=== PATIENT | female | born 1995 | race Caucasian/White ===

== ENCOUNTER 2016-06-13 15:15 | Observation (INO) | payer SELFPAY ==
[~2016-06-13] VITALS: Ht 165.1 cm; Wt 72.1 kg
[~2016-06-13 15:15] MED LIST: LACTATED RINGER'S 1000 ML INJ 2,000 ML IV ONE; NEOSTIGMINE 3 MG/3 ML SYR IV ONE; PHENYLEPH/NS 1000 MCG/10 ML SYR IV ONE; PROPOFOL 200 MG/20 ML AMP IV ONE
[2016-06-13 15:17] VITALS: BP 129/79; PULSE 110; RESP 20; TEMP 99; O2SAT 97
--- NOTE | 2016-06-13 15:24 | PD ---
Physical Exam Date Seen by Provider: June 13, 2016 Time Seen by Provider: 15:23 Narrative 20 year old female presents to the emergency department for evaluation of RLQ pain since last night. She is also 19 weeks . She denies any abnormal vaginal discharge, bleeding, leakage of fluid. She can feel fetus move normally. Vital signs reviewed. Patient waiting bed placement. Data Data Last Documented VS Vital Signs Date Time Temp Pulse Resp B/P Pulse Ox O2 Delivery O2 Flow Rate FiO2 06/13/16 15:17 99.0 110 20 129/[address] [facility] Supervised Visit with JANICE: Jacquie Baires June 13, 2016 15:24
[2016-06-13 15:30] VITALS: RESP 16; O2SAT 99
[2016-06-13] MEDS ORDERED: SODIUM CHLOR 0.9% 1000 ML INJ 1,000 ML IV SCH (15:48)
[2016-06-13] MEDS ORDERED: SODIUM CHLORIDE 0.9% FLUSH 10 ML FLUSH IV FLUSH PRN ×2 (16:00→22:45)
[2016-06-13] MEDS ORDERED: diphenhydrAMINE HCL 50 MG/ML VIAL IV PUSH ONE (16:00)
[2016-06-13] MEDS ORDERED: SODIUM CHLOR 0.9% 1000 ML INJ 1,000 ML IV ONE (16:00)
--- NOTE | 2016-06-13 16:36 | PD ---
HPI Chief Complaint: Abdominal Pain Time Seen by Provider: 15:38 Travel History International Travel<30 days: No Contact w/Intl Traveler<30days: No Traveled to known affect area: No History of Present Illness HPI Patient is a 20-year-old female presents emergency department for evaluation of right lower quadrant abdominal pain. Patient states that initially the pain was in the right flank or the right upper quadrant and now has become fairly well localized to the right lower quadrant. States she's also endorses some mild nausea. She felt hot at home but did not take her temperature. She spoke with her uncle who is a physician in the area who recommended that she come up. To be excluded for appendicitis. She denies a history of abdominal surgery. She is at approximate 19 weeks gestational age. She is followed by nurse aging room hand at home and plans for a home delivery. Denies any chest pain short of breath vaginal bleeding vaginal discharge loss of fluid. PFSH Past Medical History Medical History: Denies Significant Hx ?: LMP: 01/30/17 Past Surgical History Surgical History: No Previous Surgery Family History Family History: Negative Social History Tobacco Use: No Allergies-Medications (Allergen,Severity, Reaction): Coded Allergies: No Known Allergies (Unverified , 06/13/16) Reported Meds & Prescriptions Reported Meds & Active Scripts Active Reported Multi Adult Gummies (Multiple Vitamins W/ Minerals) 1 Chw Chw 1 Chew PO DAILY Review of Systems Except as stated in HPI: all other systems reviewed are Neg Physical Exam Narrative GENERAL: [Well-developed well-nourished, appears uncomfortable but in no distress. SKIN: Focused skin assessment warm/dry. HEAD: Atraumatic. Normocephalic. EYES: Pupils equal and round. No scleral icterus. No injection or drainage. ENT: No nasal bleeding or discharge. Mucous membranes pink and moist. NECK: Trachea midline. No JVD. CARDIOVASCULAR: Regular rate and rhythm. No murmur appreciated. RESPIRATORY: No accessory muscle use. Clear to auscultation. Breath sounds equal bilaterally. GASTROINTESTINAL: Abdomen soft, moderately tender in the right lower quadrant, nondistended. Hepatic and splenic margins not palpable. Patient is referred pain from palpation of left lower quadrant. No true rebound. There is some mild percussive tenderness of the right lower quadrant. Abdomen is minimally distended appropriate for gestational age. GENITOURINARY: Deferred MUSCULOSKELETAL: No obvious deformities. No clubbing. No cyanosis. No edema. NEUROLOGICAL: Awake and alert. No obvious cranial nerve deficits. Motor grossly within normal limits. Normal speech. PSYCHIATRIC: Appropriate mood and affect; insight and judgment normal. Data Data Last Documented VS Vital Signs Date Time Temp Pulse Resp B/P Pulse Ox O2 Delivery O2 Flow Rate FiO2 06/13/16 15:45 16 06/13/16 15:30 99 Room Air 06/13/16 15:17 99.0 110 129/79 Orders Ed Poc Ultrasound (06/13/16 ) Complete Blood Count With Diff (06/13/16 15:48) Comprehensive Metabolic Panel (06/13/16 15:48) Prothrombin Time / Inr (Pt) (06/13/16 15:48) Act Partial Throm Time (Ptt) (06/13/16 15:48) Urinalysis - C+S If Indicated (06/13/16 15:48) Iv Access Insert/Monitor (06/13/16 15:48) Ecg Monitoring (06/13/16 15:48) Oximetry (06/13/16 15:48) Sodium Chlor 0.9% 1000 Ml Inj (Ns 1000 M (06/13/16 15:48) Sodium Chloride 0.9% Flush (Ns Flush) (06/13/16 16:00) Sodium Chlor 0.9% 1000 Ml Inj (Ns 1000 M (06/13/16 16:00) Diphenhydramine Inj (Benadryl Inj) (06/13/16 16:00) Mri Abdomen W/O Contrast (06/13/16 ) Ampicillin-Sulbactam Inj (Unasyn Inj) (06/13/16 17:45) Labs Laboratory Tests Test 06/13/16 16:00 White Blood Count 17.7 TH/MM3 Red Blood Count 3.84 MIL/MM3 Hemoglobin 12.0 GM/DL Hematocrit 34.3 % Mean Corpuscular Volume 89.4 FL Mean Corpuscular Hemoglobin 31.3 PG Mean Corpuscular Hemoglobin 35.0 % Concent Red Cell Distribution Width 13.5 % Platelet Count 215 TH/MM3 Mean Platelet Volume 9.8 FL Neutrophils (%) (Auto) 87.0 % Lymphocytes (%) (Auto) 4.5 % Monocytes (%) (Auto) 7.9 % Eosinophils (%) (Auto) 0.5 % Basophils (%) (Auto) 0.1 % Neutrophils # (Auto) 15.4 TH/MM3 Lymphocytes # (Auto) 0.8 TH/MM3 Monocytes # (Auto) 1.4 TH/MM3 Eosinophils # (Auto) 0.1 TH/MM3 Basophils # (Auto) 0.0 TH/MM3 CBC Comment DIFF FINAL Differential Comment Prothrombin Time 10.1 SEC Prothromb Time International 0.9 RATIO Ratio Activated Partial 27.7 SEC Thromboplast Time Urine Color LIGHT-YELLOW Urine Turbidity CLEAR Urine pH 6.5 Urine Specific [place] 1.008 Urine Protein NEG mg/dL Urine Glucose (UA) NEG mg/dL Urine Ketones NEG mg/dL Urine Occult Blood NEG Urine Nitrite NEG Urine Bilirubin NEG Urine Urobilinogen LESS THAN 2.0 MG/DL Urine Leukocyte Esterase NEG Urine WBC LESS THAN 1 /hpf Urine Squamous Epithelial 1 /hpf Cells Urine Mucus FEW /lpf Microscopic Urinalysis Comment CULT NOT INDICATED Sodium Level 138 MEQ/L Potassium Level 3.7 MEQ/L Chloride Level 106 MEQ/L Carbon Dioxide Level 22.8 MEQ/L Anion Gap 9 MEQ/L Blood Urea Nitrogen 5 MG/DL Creatinine 0.50 MG/DL Estimat Glomerular Filtration 154 ML/MIN Rate Random Glucose 92 MG/DL Calcium Level 9.0 MG/DL Total Bilirubin 0.3 MG/DL Aspartate Amino Transf 15 U/L (AST/SGOT) Alanine Aminotransferase 18 U/L (ALT/SGPT) Alkaline Phosphatase 55 U/L Total Protein 6.8 GM/DL Albumin 3.3 GM/DL MDM Medical Decision Making Medical Screen Exam Complete: Yes Emergency Medical Condition: Yes Differential Diagnosis Appendicitis, gastritis, gastric enteritis, cholecystitis Narrative Course Patient 20-year-old female presents for leg lower quadrant abdominal pain. She is fairly tender on exam and I agree with her uncles assessment that this could represent an acute appendicitis. MRIs pursued which confirms a diagnosis: Last 24 hours Impressions Abdomen MRI 06/13/16 0000 Signed Impressions: Service Date/Time: Monday, June 13, 2016 17:11 - CONCLUSION: 1. Appendix distended to 17 mm with mild periappendiceal fluid characteristic of an acute appendicitis with trace free fluid in the pelvis. No discrete abscess. No bowel dilatation. Khari Dennis MD Patient does have a white blood cell count elevated. She was discussed with Dr. Rui of the general surgery service who is going to come and evaluate the patient for surgical options. The patient has been given Unasyn. She was offered pain medicine multiple times in the emergency department and declined. She had taken Tylenol prior to arrival and did not want this. Discussed happy to administer morphine in the risk is fairly low given her gestational age and she declines. Diagnosis Primary Impression: Acute appendicitis Qualified Code: K35.80 - Acute appendicitis, unspecified acute appendicitis type Admitting Information Admitting Physician Requests: Admit Condition: Stable Rik Morales MD June 13, 2016 16:36
[2016-06-13 16:46] LABS: AUTOMATED NEUTROPHIL # 15.4 TH/MM3 (1.8-7.7); BASOPHIL % 0.1 % (0.0-2.0); EOSINOPHIL # 0.1 TH/MM3 (0-0.4); EOSINOPHIL % 0.5 % (0.0-4.0); HEMATOCRIT 34.3 % (35.0-46.0); HEMO FLAGS DIFF FINAL; LYMPH % 4.5 % (9.0-44.0); LYMPHOCYTE # 0.8 TH/MM3 (1.0-4.8); MEAN CELL VOLUME 89.4 FL (80.0-100.0); MEAN CORPUSCULAR HEMOGLOBIN 31.3 PG (27.0-34.0); MONO % 7.9 % (0.0-8.0); PLATELET COUNT 215 TH/MM3 (150-450); RED BLOOD COUNT 3.84 MIL/MM3 (4.00-5.30); RED CELL DISTRIBUTION WIDTH 13.5 % (11.6-17.2); WHITE BLOOD COUNT 17.7 TH/MM3 (4.0-11.0)
[2016-06-13 16:56] LABS: APTT (PATIENT) 27.7 SEC (24.3-30.1); INTERNATIONAL NORMALIZED RATIO 0.9 RATIO; PROTHROMBIN TIME - PATIENT 10.1 SEC (9.8-11.6)
[2016-06-13 16:58] LABS: BLOOD, URINE NEG (NEG); GLUCOSE,URINE NEG (NEG); KETONE, URINE NEG (NEG); MUCUS URINE FEW /lpf (OCC); NITRITE,URINE NEG (NEG); PH, URINE 6.5 (5.0-8.5); SQUAMOUS EPITHELIAL CELL URINE 1 /hpf (0-5); URINE COLOR LIGHT-YELLOW (YELLW/STRAW)
[2016-06-13 16:59] LABS: COMMENT (UR) CULT NOT INDICATED; CULTURE IF INDICATED CULT NOT INDICATED
[2016-06-13 17:09] LABS: ANION GAP 9 MEQ/L (5-15); AST (GOT) 15 U/L (15-37); BICARBONATE 22.8 MEQ/L (21.0-32.0); BLOOD UREA NITROGEN 5 MG/DL (7-18); CHLORIDE 106 MEQ/L (98-107); GLOMERULAR FILTRATION RATE 154 ML/MIN (>89); POTASSIUM 3.7 MEQ/L (3.5-5.1); SODIUM (NA) 138 MEQ/L (136-145)
[2016-06-13 17:12] LABS: ALKALINE PHOSPHATASE 55 U/L (45-117); ALT (GPT) 18 U/L (10-53); TOTAL BILIRUBIN ADULT 0.3 MG/DL (0.2-1.0)
[2016-06-13] MEDS ORDERED: AMPICILLIN-SULBACTAM INJ 3 GM in SODIUM CHLORIDE 0.9% INJ 100 ML IV ONE (17:45)
--- NOTE | 2016-06-13 17:53 | RADRPT ---
EXAM DATE/TIME: 06/13/2016 17:11 [place] COMPARISON: No previous studies available for comparison. INDICATIONS : Appendicitis. MEDICAL HISTORY : None. SURGICAL HISTORY : None. ENCOUNTER: Initial ACUITY: 1 day PAIN SCORE: 5/10 LOCATION: Right lower quadrant TECHNIQUE: Multiplanar, multisequence magnetic resonance imaging of the abdomen was performed without contrast. FINDINGS: The appendix measures up to 17 mm in diameter and there is a small amount axial fluid most characteri stic of an acute appendicitis. Intrauterine is noted incidentally. No definite abscess form ation. No bowel dilatation identified. Small free fluid in the pelvis. CONCLUSION: 1. Appendix distended to 17 mm with mild periappendiceal fluid characteristic of an acute appendiciti s with trace free fluid in the pelvis. No discrete abscess. No bowel dilatation. Khari Dennis MD on June 13, 2016 at 17:49 Board Certified Radiologist. This report was verified electronically.
[2016-06-13 18:00] VITALS: BP 112/58; PULSE 54; RESP 16; O2SAT 98
[2016-06-13] MEDS ORDERED: MULT1CHW33 PO (18:22)
--- NOTE | 2016-06-13 18:41 | HHI.HP ---
[facility] Service General surgery Primary Care Physician No Primary Care Physician Admission Diagnosis Appendicitis during Chief Complaint: Abdominal pain History of Present Illness This is a 20-year-old female 19 weeks who developed upper abdominal pain all day yesterday was last night and localized to the right lower quadrant. She's had some nausea but no vomiting. No fever or chills. No previous surgical history. No vaginal discharge or bleeding. Evaluation in the emergency department revealed severe tenderness in the right lower quadrant with leukocytosis and an MRI of the abdomen consistent with acute appendicitis. Per Dr. Morales heart tones were present. Review of Systems Constitutional: DENIES: Fever, Chills Eyes: DENIES: Eye inflammation, Eye pain Cardiovascular: DENIES: Chest pain, Palpitations Gastrointestinal: COMPLAINS OF: Abdominal pain, Nausea Genitourinary: DENIES: Abnormal vaginal bleeding Integumentary: DENIES: Pruritus, Rash Neurologic: DENIES: Localized weakness, Paresthesias Past Family Social History Past Medical History None Past Surgical History None Reported Medications None Allergies: Coded Allergies: No Known Allergies (Unverified , 06/13/16) Active Ordered Medications Current Medications Medications (Trade) Dose Ordered Sig/Mattie Route Start Time Stop Time Status Last Admin (NS Flush) 2 ml UNSCH PRN IV FLUSH 06/13/16 16:00 06/13/16 16:05 Family History Noncontributory Social History No ETOH or tobacco use Physical Exam Vital Signs Vital Signs Date Time Temp Pulse Resp B/P Pulse Ox O2 Delivery O2 Flow Rate FiO2 06/13/16 15:45 16 06/13/16 15:30 16 99 Room Air 06/13/16 15:17 99.0 110 20 129/79 97 Room Air Physical Exam GENERAL: Awake and alert. No acute distress. Cooperative. HEAD: Normocephalic. Atraumatic. NECK: Trachea midline. CHEST: Lungs clear to auscultation bilaterally with no wheezing or rhonchi. No respiratory distress. CARDIOVASCULAR: Regular rate and rhythm. ABDOMEN: MIld distention. Mild pain LLQ, severe ttp with rebound in RLQ. Difficult to assess size of uterus due to her tenderness EXTREMITIES: No cyanosis or edema. SKIN: Warm, dry, nonjaundiced. Laboratory Laboratory Tests Test 06/13/16 16:00 White Blood Count 17.7 Red Blood Count 3.84 Hemoglobin 12.0 Hematocrit 34.3 Mean Corpuscular Volume 89.4 Mean Corpuscular Hemoglobin 31.3 Mean Corpuscular Hemoglobin 35.0 Concent Red Cell Distribution Width 13.5 Platelet Count 215 Mean Platelet Volume 9.8 Neutrophils (%) (Auto) 87.0 Lymphocytes (%) (Auto) 4.5 Monocytes (%) (Auto) 7.9 Eosinophils (%) (Auto) 0.5 Basophils (%) (Auto) 0.1 Neutrophils # (Auto) 15.4 Lymphocytes # (Auto) 0.8 Monocytes # (Auto) 1.4 Eosinophils # (Auto) 0.1 Basophils # (Auto) 0.0 CBC Comment DIFF FINAL Differential Comment Prothrombin Time 10.1 Prothromb Time International 0.9 Ratio Activated Partial 27.7 Thromboplast Time Urine Color LIGHT-YELLOW Urine Turbidity CLEAR Urine pH 6.5 Urine Specific [place] 1.008 Urine Protein NEG Urine Glucose (UA) NEG Urine Ketones NEG Urine Occult Blood NEG Urine Nitrite NEG Urine Bilirubin NEG Urine Urobilinogen LESS THAN 2.0 Urine Leukocyte Esterase NEG Urine WBC LESS THAN 1 Urine Squamous Epithelial 1 Cells Urine Mucus FEW Microscopic Urinalysis Comment CULT NOT INDICATED Sodium Level 138 Potassium Level 3.7 Chloride Level 106 Carbon Dioxide Level 22.8 Anion Gap 9 Blood Urea Nitrogen 5 Creatinine 0.50 Estimat Glomerular Filtration 154 Rate Random Glucose 92 Calcium Level 9.0 Total Bilirubin 0.3 Aspartate Amino Transf 15 (AST/SGOT) Alanine Aminotransferase 18 (ALT/SGPT) Alkaline Phosphatase 55 Total Protein 6.8 Albumin 3.3 Result Diagram: 06/13/16 1600 06/13/16 1600 Imaging Last Impressions Abdomen MRI 06/13/16 0000 Signed Impressions: Service Date/Time: Monday, June 13, 2016 17:11 - CONCLUSION: 1. Appendix distended to 17 mm with mild periappendiceal fluid characteristic of an acute appendicitis with trace free fluid in the pelvis. No discrete abscess. No bowel dilatation. Khari Dennis MD Assessment and Plan Assessment and Plan 20 yo female 19 weeks gestation with evaluation consistent with acute appendicitis. I recommend to proceed to the operating room for laparoscopic possible open appendectomy. I discussed details risks and benefits with the patient, her , and her mother. She does know that there is a small risk of spontaneous . She has received Unasyn. Dr. Mcgovern of TECHNICAL OPERATIONS MANAGER will also evaluate the patient. Wilman Fabian MD June 13, 2016 18:41
[2016-06-13] MEDS ORDERED: MORPHINE SULFATE 4 MG/ML INJ IV PUSH ONE ×2 (19:15)
--- NOTE | 2016-06-13 19:22 | PD.CONS ---
HPI Chief Complaint Right-sided abdominal pain Date Seen: June 13, 2016 Travel History International Travel<30 Days: No Contact w/Intl Traveler<30Days: No Known Affected Area: No History of Present Illness HPI This patient is 20-year-old white female at 19 weeks gestation presents with right-sided abdominal pain began and the night. Pain progressively worsening the point she's come to the emergency room. She denies vaginal bleeding leakage of fluid or discharge. She is 19 weeks and sees a research and development manager for care and plans a home delivery. She has no other major medical problems. Para: 0 : 1 History Social History Alcohol Use: No Tobacco Use: No Substance Abuse: No Allergies-Medications (Allergen,Severity, Reaction): Coded Allergies: No Known Allergies (Unverified , 06/13/16) Home Meds Reported Medications Multiple Vitamins W/ Minerals (Multi Adult Gummies)1 Chw Chw1 Chew PO DAILY 06/13/16 Review of Systems General / Constitutional: No: Fever, Weight Gain, Chills, Other Eyes: No: Diploplia, Blurred Vision, Visual changes, Pain, Photophobia HENT: No: Headaches, Vertigo, Lightheadedness Cardiovascular: No: Irregular Rhythm, Chest Pain or Discomfort, Palpitations, Tachycardia, Syncope, Varicosities, Edema, Cyanosis Respiratory: No: Cough, Short of Breath, Other Gastrointestinal: Abdominal Pain, No: Nausea, Vomiting, Diarrhea Genitourinary: No: Decreased Urinary Output, Oliguria Musculoskeletal: No: Limited ROM, Weakness, Cramping, Edema, Pain Skin: No Rash, No Itching, No Dryness, No Lumps, No Change in Pigmentation, No Change in Nails, No Alopecia, No Lesions Neurologic: No: Weakness, Dizziness, Syncope, Focal Abnormalities, Coordination Problem, Headache, Slurred Speech, Seizures Psychiatric: No: Depression, Suicidal Ideations, Homicidal Ideation Endocrine: No: Heat Intolerance, Cold Intolerance, Polydipsia, Polyuria, Other Physical Exam Vital Signs Date Time Temp Pulse Resp B/P Pulse Ox O2 Delivery O2 Flow Rate FiO2 06/13/16 18:00 54 16 112/58 98 Room Air 06/13/16 15:45 16 06/13/16 15:30 16 99 Room Air 06/13/16 15:17 99.0 110 20 129/79 97 Room Air Narrative GENERAL: Well-nourished, well-developed patient. In moderate pain SKIN: Warm and dry. HEAD: Normocephalic and atraumatic. EYES: No scleral icterus. No injection or drainage. ENT: No nasal drainage noted. Mucous membranes pink. Airway patent. NECK: Supple, trachea midline. No JVD. CARDIOVASCULAR: Regular rate and rhythm without murmurs, gallops, or rubs. RESPIRATORY: Breath sounds equal bilaterally. No accessory muscle use. BREASTS: Bilateral exam showed no masses , no retractions, no nipple discharge. ABDOMEN/GI: Abdomen tender, bowel sounds present, no guarding Gravid to [-19] weeks size Fundal Height: [-At umbilicus] GENITOURINARY: FHT's: 140s EXTREMITIES: No cyanosis or edema. BACK: Nontender without obvious deformity. No CVA tenderness. NEUROLOGICAL: Awake and alert. Motor and sensory grossly within normal limits. Five out of 5 muscle strength in all muscle groups. Normal speech. Data Data Orders Ed Poc Ultrasound (06/13/16 ) Complete Blood Count With Diff (06/13/16 15:48) Comprehensive Metabolic Panel (06/13/16 15:48) Prothrombin Time / Inr (Pt) (06/13/16 15:48) Act Partial Throm Time (Ptt) (06/13/16 15:48) Urinalysis - C+S If Indicated (06/13/16 15:48) Iv Access Insert/Monitor (06/13/16 15:48) Ecg Monitoring (06/13/16 15:48) Oximetry (06/13/16 15:48) Sodium Chlor 0.9% 1000 Ml Inj (Ns 1000 M (06/13/16 15:48) Sodium Chloride 0.9% Flush (Ns Flush) (06/13/16 16:00) Sodium Chlor 0.9% 1000 Ml Inj (Ns 1000 M (06/13/16 16:00) Diphenhydramine Inj (Benadryl Inj) (06/13/16 16:00) Mri Abdomen W/O Contrast (06/13/16 ) Ampicillin-Sulbactam Inj (Unasyn Inj) (06/13/16 17:45) Admit Order (Ed Use Only) (06/13/16 ) Consult Obstetrics (06/13/16 ) (Hub Use Only)Inp Phy Cons/Ref (06/13/16 ) Morphine Inj (Morphine Inj) (06/13/16 19:15) Morphine Inj (Morphine Inj) (06/13/16 19:15) Labs Ultrasound done at bedside in the emergency room shows a viable fetus of size equal dates activity and cardiac motion noted, this was ultrasound was done by the ER staff, the patient also had an MRI done which shows signs consistent with appendicitis acute Laboratory Tests Test 06/13/16 16:00 White Blood Count 17.7 Red Blood Count 3.84 Hemoglobin 12.0 Hematocrit 34.3 Mean Corpuscular Volume 89.4 Mean Corpuscular Hemoglobin 31.3 Mean Corpuscular Hemoglobin 35.0 Concent Red Cell Distribution Width 13.5 Platelet Count 215 Mean Platelet Volume 9.8 Neutrophils (%) (Auto) 87.0 Lymphocytes (%) (Auto) 4.5 Monocytes (%) (Auto) 7.9 Eosinophils (%) (Auto) 0.5 Basophils (%) (Auto) 0.1 Neutrophils # (Auto) 15.4 Lymphocytes # (Auto) 0.8 Monocytes # (Auto) 1.4 Eosinophils # (Auto) 0.1 Basophils # (Auto) 0.0 CBC Comment DIFF FINAL Differential Comment Prothrombin Time 10.1 Prothromb Time International 0.9 Ratio Activated Partial 27.7 Thromboplast Time Urine Color LIGHT-YELLOW Urine Turbidity CLEAR Urine pH 6.5 Urine Specific [place] 1.008 Urine Protein NEG Urine Glucose (UA) NEG Urine Ketones NEG Urine Occult Blood NEG Urine Nitrite NEG Urine Bilirubin NEG Urine Urobilinogen LESS THAN 2.0 Urine Leukocyte Esterase NEG Urine WBC LESS THAN 1 Urine Squamous Epithelial 1 Cells Urine Mucus FEW Microscopic Urinalysis Comment CULT NOT INDICATED Sodium Level 138 Potassium Level 3.7 Chloride Level 106 Carbon Dioxide Level 22.8 Anion Gap 9 Blood Urea Nitrogen 5 Creatinine 0.50 Estimat Glomerular Filtration 154 Rate Random Glucose 92 Calcium Level 9.0 Total Bilirubin 0.3 Aspartate Amino Transf 15 (AST/SGOT) Alanine Aminotransferase 18 (ALT/SGPT) Alkaline Phosphatase 55 Total Protein 6.8 Albumin 3.3 MDM Interpretation(s) This patient is a 20-year-old white female at 19 weeks gestation presents with abdominal pain and radiographic and clinical workup consistent with appendicitis in Plan Ultrasound is been done which documented a viable fetus with positive cardiac motion. This Gen. surgery is involved in the planning take the patient to surgery tonight. I discussed the case with a general surgeon and we agreed that she is getting appropriate therapy, she certainly may receive IV antibiotics Unasyn , she may also receive IV pain medication in the form of fentanyl or Demerol or morphine and would recommend a repeat ultrasound of on the day of her discharge from the hospital to confirm that there was a normal fetus on admission and normal fetus on discharge. I explained to the patient that no one wants to have surgery however she is going to have it, this is the time to do it when you're because she is far enough along she should not miscarry and she's not far enough along that we have to worry about labor issues Admitting diagnosis: Appendicitis during Diagnosis: appendicitis in Condition: Stable Enrike Mcgovern II, MD June 13, 2016 19:22
[2016-06-13 19:24] VITALS: BP 108/59; PULSE 92; RESP 16; O2SAT 99
[2016-06-13 21:40] VITALS: BP 101/54; PULSE 92; RESP 17; TEMP 99.8; O2SAT 97
[2016-06-13] MEDS ORDERED: fentaNYL CITRATE 250 MCG/5 ML AMP ONE (21:40)
[2016-06-13] MEDS ORDERED: BUPIVACAINE/EPINEPHRINE 0.5% PF 30 ML VIAL ONE (22:05)
[2016-06-13] MEDS ORDERED: BUPIVACAINE/EPINEPHRINE 0.25% 50 ML VIAL ONE (22:06)
[2016-06-13] MEDS ORDERED: LACTATED RINGER'S 1000 ML INJ 1,000 ML IV SCH (22:38)
[2016-06-13] MEDS ORDERED: ONDANSETRON HCL 4 MG/2 ML VIAL IV PRN (22:45)
[2016-06-13] MEDS ORDERED: NALOXONE HCL 0.4 MG/ML AMP IV PRN (22:45)
[2016-06-13] MEDS ORDERED: Post-op Orders (for Pharmacy) MISC XX ONE (22:45)
[2016-06-13] MEDS ORDERED: oxyCODONE/ACETAMINOPHEN 5 MG/325 MG TAB PO PRN (22:45)
[2016-06-13] MEDS ORDERED: ONDANSETRON HCL 4 MG/2 ML VIAL IV PUSH PRN (22:45)
[2016-06-13] MEDS ORDERED: MORPHINE SULFATE 4 MG/ML INJ IV PUSH PRN ×2 (22:45)
--- NOTE | 2016-06-13 22:51 | PD.OP ---
cc: Wilman Fabian MD Operative Report Date of Surgery: June 13, 2016 Preoperative Diagnosis: (1) Acute appendicitis (2) with 19 completed weeks gestation Postoperative Diagnosis: (1) with 19 completed weeks gestation (2) Acute appendicitis Procedure: Laparoscopic Appendectomy Anesthesia: GETA Surgeon: Wilman Fabian Delinquency Prevention Social Worker(s): Juan Manuel GUERRERO Operation and Findings: EBL: 5 cc Complications: None apparent Operative findings: Enlarged uterus consistent with a 19 week gestational . The appendix was dilated and inflamed with exudative material. Procedure in detail: The patient was taken to the operating room placed in the supine position with left arm tucked. General endotracheal anesthesia was induced and the abdomen was prepped and draped in usual sterile fashion. Surgical timeout was performed to verify correct patient procedure and site. Perioperative antibiotics were administered as necessary. Local anesthetic was injected in the skin and subcutaneous tissue at left upper abdomen and a 5 mm incision made. Using the 5 mm Optiview trocar with laparoscope the abdomen was directly entered. Was then insufflated to 15 mmHg with CO2 gas which the patient tolerated well. The patient was then placed in Trendelenburg position and turned slightly to the left. A 12 mm port was placed under laparoscopic visualization of the left mid abdomen and a 5 mm port in the right upper quadrant. The uterus was noted to be enlarged and appeared consistent with an 18 week gestational . Attention was turned to the right lower quadrant and the cecum and appendix were more in the right midabdomen. The appendix was curled around on itself and inflamed with exudate externally. There was no purulent fluid. Adhesions from the cecum to the appendix were taken down in order to free the appendix. The mesoappendix was taken down with the Harmonic scalpel. Two #1 PDS Endoloops were placed at the base the appendix and the appendix transected with Harmonic scalpel. It was then removed using an Endo Catch bag. The appendiceal stump was intact with no leakage. There was no purulent fluid identified in the abdomen was allowed to desufflate. The fascia at the 12 mm port site was closed with a single 0 Vicryl suture. Skin closed with subcuticular Monocryl as well as Dermabond. The patient tolerated the procedure well was extubated and taken to PACU in stable condition. Wilman Fabian MD June 13, 2016 22:51
[2016-06-14] VITALS: BP 106/58; PULSE 74; RESP 16; TEMP 98.8; O2SAT 97
[2016-06-14] MEDS: oxyCODONE/ACETAMINOPHEN 5 MG/325 MG TAB PO PRN ×2 (03:44→11:03)
[2016-06-14 04:00] VITALS: BP 113/59; PULSE 81; RESP 16; TEMP 98.3; O2SAT 96
[2016-06-14 08:00] VITALS: BP 108/58; PULSE 73; TEMP 97.5; O2SAT 97
[2016-06-14] MEDS ORDERED: SODIUM CHLORIDE 0.9% FLUSH 10 ML FLUSH IV FLUSH SCH (09:00)
[2016-06-14 12:00] VITALS: BP 115/58; PULSE 78; TEMP 97.2; O2SAT 97
[2016-06-14] MEDS ORDERED: OXYC1TAB63 PO (13:39)
--- NOTE | 2016-06-14 13:42 | HHI.PR ---
Subjective Subjective Notes She is doing well post op. Pain controlled with medications. She is tolerating diet. She reports heart tones were checked and were fine. Objective Vitals/I&O Vital Signs Date Time Temp Pulse Resp B/P Pulse Ox O2 Delivery O2 Flow Rate FiO2 06/14/16 12:00 97.2 78 115/58 97 06/14/16 04:00 16 06/13/16 23:15 Nasal Cannula 3 Labs Laboratory Tests Test 06/13/16 16:00 White Blood Count 17.7 Red Blood Count 3.84 Hemoglobin 12.0 Hematocrit 34.3 Mean Corpuscular Volume 89.4 Mean Corpuscular Hemoglobin 31.3 Mean Corpuscular Hemoglobin 35.0 Concent Red Cell Distribution Width 13.5 Platelet Count 215 Mean Platelet Volume 9.8 Neutrophils (%) (Auto) 87.0 Lymphocytes (%) (Auto) 4.5 Monocytes (%) (Auto) 7.9 Eosinophils (%) (Auto) 0.5 Basophils (%) (Auto) 0.1 Neutrophils # (Auto) 15.4 Lymphocytes # (Auto) 0.8 Monocytes # (Auto) 1.4 Eosinophils # (Auto) 0.1 Basophils # (Auto) 0.0 CBC Comment DIFF FINAL Differential Comment Prothrombin Time 10.1 Prothromb Time International 0.9 Ratio Activated Partial 27.7 Thromboplast Time Urine Color LIGHT-YELLOW Urine Turbidity CLEAR Urine pH 6.5 Urine Specific [place] 1.008 Urine Protein NEG Urine Glucose (UA) NEG Urine Ketones NEG Urine Occult Blood NEG Urine Nitrite NEG Urine Bilirubin NEG Urine Urobilinogen LESS THAN 2.0 Urine Leukocyte Esterase NEG Urine WBC LESS THAN 1 Urine Squamous Epithelial 1 Cells Urine Mucus FEW Microscopic Urinalysis Comment CULT NOT INDICATED Sodium Level 138 Potassium Level 3.7 Chloride Level 106 Carbon Dioxide Level 22.8 Anion Gap 9 Blood Urea Nitrogen 5 Creatinine 0.50 Estimat Glomerular Filtration 154 Rate Random Glucose 92 Calcium Level 9.0 Total Bilirubin 0.3 Aspartate Amino Transf 15 (AST/SGOT) Alanine Aminotransferase 18 (ALT/SGPT) Alkaline Phosphatase 55 Total Protein 6.8 Albumin 3.3 Radiology Last Impressions Abdomen MRI 06/13/16 0000 Signed Impressions: Service Date/Time: Monday, June 13, 2016 17:11 - CONCLUSION: 1. Appendix distended to 17 mm with mild periappendiceal fluid characteristic of an acute appendicitis with trace free fluid in the pelvis. No discrete abscess. No bowel dilatation. Khari Dennis MD Narrative Exam NAD Abd soft, post op ttp, inc c/d/i A/P Assessment and Plan 20 yo F 19 wks gestation POD 1 s/p lap appy. Stable post op. D/c home. Activity- no heavy lifting. Diet as elvin. Rx for percocet. F/u in two weeks. Will need u/s of fetus prior to dc per Dr. Mcgovern recommendations. D/w patient and nursing staff. Wilman Fabian MD June 14, 2016 13:42
[2016-06-14 16:00] VITALS: BP 108/58; PULSE 64; RESP 16; TEMP 96.6; O2SAT 97
== END 2016-06-14 16:41 | disposition home or self-care (01) ==
LOC: NEPC 15:15 → INTOOBSV 17:58 → NEDA 17:58 → HOCA 21:42
PROVIDERS: ADMIT Surgery; ATTEND Surgery
DX: K35.80 Unspecified acute appendicitis (principal); O99.612 Diseases of the digestive system complicating pregnancy, second trimester; R10.31 Right lower quadrant pain; R11.0 Nausea; Z3A.19 19 weeks gestation of pregnancy
CPT/HCPCS: 00840; 44970; 74181; 76805; 80053; 81001; 85025; 85610; 85730; 88304; 94150; 96361; 96374; 99285; G0378; J0295; J1200; J2270; J2370; J2710; J3010; J7030; J7120

== ENCOUNTER 2016-11-17 19:25 | Inpatient (IN) | payer SELFPAY ==
[~2016-11-17] VITALS: Ht 165.1 cm; Wt 86.0 kg
[~2016-11-17 19:25] MED LIST changes: -LACTATED RINGER'S 1000 ML INJ 2,000 ML IV ONE; +MULT1CHW33 PO; -NEOSTIGMINE 3 MG/3 ML SYR IV ONE; +OXYC1TAB63 PO; -PHENYLEPH/NS 1000 MCG/10 ML SYR IV ONE; -PROPOFOL 200 MG/20 ML AMP IV ONE
--- NOTE | 2016-11-17 20:20 | PD ---
HPI Chief Complaint Low amniotic fluid Date Seen: Nov 17, 2016 Time Seen: 20:17 Travel History International Travel<30 Days: No Contact w/Intl Traveler<30Days: No Known Affected Area: No History of Present Illness HPI 21-year-old female who is at 41 weeks gestation and sees Sylvia Arias for her care. Patient obtained a biophysical profile today which showed that she had an ELISHA of 2 and a heart rate of 110 on the ultrasound as well as and the records and information manager office. Patient is experiencing normal movement and denies any issues except for an appendectomy performed at 18 weeks. Weeks Gestation: 41 Para: 0 : 1 History Past Medical History Medical History: Denies Significant Hx Past Surgical History Narrative Surgical Appendectomy Family History Family History: Negative Social History Alcohol Use: No Tobacco Use: No Substance Abuse: No Allergies-Medications (Allergen,Severity, Reaction): Coded Allergies: No Known Allergies (Unverified , 06/13/16) Home Meds Active Scripts Oxycodone-Acetaminophen (Oxycodone-Acetaminophen) 5-325 mg Tab, 1-2 TAB PO Q4H Y for PAIN, #25 TAB Prov:Wilman Fabian MD 06/14/16 Reported Medications Multiple Vitamins W/ Minerals (Multi Adult Gummies) 1 Chw Chw, 1 CHEW PO DAILY 06/13/16 Review of Systems Except as stated in HPI: all other systems reviewed are Neg Physical Exam Narrative GENERAL: Well-nourished, well-developed patient. SKIN: Warm and dry. HEAD: Normocephalic and atraumatic. EYES: No scleral icterus. No injection or drainage. ENT: No nasal drainage noted. Mucous membranes pink. Airway patent. NECK: Supple, trachea midline. No JVD. CARDIOVASCULAR: Regular rate and rhythm without murmurs, gallops, or rubs. RESPIRATORY: Breath sounds equal bilaterally. No accessory muscle use. BREASTS: Bilateral exam showed no masses , no retractions, no nipple discharge. ABDOMEN/GI: Abdomen soft, non-tender, bowel sounds present, no rebound, no guarding Gravid to [-38] weeks size Fundal Height: [-] GENITOURINARY: External Genitalia: intact and normal in appearance BUS glands: [Normal-] Cervix: [-Posterior] Dilatation: [-1] Effacement: [-50] Station: [--2] Presentation: [-Vertex] Membranes: [intact ] Uterine Contractions: [Every 15-] FHT's: Category: [-1] Baseline: [140-] Reactive: [-Moderate] Variability: [Moderate-] Decels: [-Absent] EXTREMITIES: No cyanosis or edema. BACK: Nontender without obvious deformity. No CVA tenderness. NEUROLOGICAL: Awake and alert. Motor and sensory grossly within normal limits. Five out of 5 muscle strength in all muscle groups. Normal speech. Data Data Vital Signs Reviewed: Yes Group B Strep: Negative MDM Medical Record Reviewed: Yes Plan 21-year-old 41 weeks gestation with oligohydramnios Plan induction of labor initially with cervical ripening followed by Pitocin Diagnosis Diagnosis: Primary Impression: 41 weeks gestation of Additional Impression: Oligohydramnios in shahid in third trimester Jacqueline Hernandez MD Nov 17, 2016 20:20
[2016-11-17] MEDS ORDERED: LACTATED RINGER'S 1000 ML INJ 1,000 ML IV PRN (20:22)
[2016-11-17] MEDS ORDERED: SODIUM CHLORID 0.9% 500 ML INJ 500 ML IV PRN (20:30)
[2016-11-17] MEDS ORDERED: OXYTOCIN 30 UNITS-500ML PREMIX 500 ML IV ONE (20:30)
[2016-11-17] MEDS ORDERED: LIDOCAINE HCL 1% 50 ML VIAL INFIL PRN (20:30)
[2016-11-17] MEDS ORDERED: ZOLPIDEM TARTRATE 5 MG TAB PO PRN (20:30)
[2016-11-17] MEDS ORDERED: SODIUM CHLORIDE 0.9% FLUSH 10 ML FLUSH IV FLUSH PRN (20:30)
[2016-11-17] MEDS ORDERED: LIDOCAINE HCL 1% 50 ML VIAL I-DERMAL PRN (20:30)
[2016-11-17] MEDS ORDERED: CITRIC ACID-SODIUM CITRATE LIQ 30 ML UDC PO SCH (20:30)
[2016-11-17] MEDS ORDERED: MINERAL OIL 10 ML VIAL TOPICAL PRN (20:30)
[2016-11-17] MEDS ORDERED: ONDANSETRON HCL 4 MG/2 ML VIAL IV PUSH PRN (20:30)
[2016-11-17] MEDS ORDERED: SODIUM CHLOR 0.9% 1000 ML INJ 1,000 ML IV PRN (20:42)
[2016-11-17 21:39] LABS: BLOOD, URINE NEG (NEG); CALCIUM OXALATE CRYSTALS,URINE MANY /hpf; COMMENT (UR) CULT NOT INDICATED; CULTURE IF INDICATED CULT NOT INDICATED; GLUCOSE,URINE NEG (NEG); KETONE, URINE NEG (NEG); MUCUS URINE FEW /lpf (OCC); NITRITE,URINE NEG (NEG); PH, URINE 5.5 (5.0-8.5); SQUAMOUS EPITHELIAL CELL URINE 5 /hpf (0-5); URINE COLOR DARK-YELLOW (YELLW/STRAW)
[2016-11-17 21:46] LABS: AUTOMATED NEUTROPHIL # 6.5 TH/MM3 (1.8-7.7); BASOPHIL % 0.2 % (0.0-2.0); EOSINOPHIL # 0.1 TH/MM3 (0-0.4); EOSINOPHIL % 1.3 % (0.0-4.0); HEMATOCRIT 38.7 % (35.0-46.0); HEMO FLAGS DIFF FINAL; LYMPH % 14.2 % (9.0-44.0); LYMPHOCYTE # 1.3 TH/MM3 (1.0-4.8); MEAN CELL VOLUME 91.4 FL (80.0-100.0); MEAN CORPUSCULAR HEMOGLOBIN 31.3 PG (27.0-34.0); MEAN CORPUSCULAR HGB CONC 34.2 % (32.0-36.0); MONO % 10.9 % (0.0-8.0); NEUT % 73.4 % (16.0-70.0); PLATELET COUNT 163 TH/MM3 (150-450); RED BLOOD COUNT 4.24 MIL/MM3 (4.00-5.30); RED CELL DISTRIBUTION WIDTH 18.8 % (11.6-17.2); WHITE BLOOD COUNT 8.9 TH/MM3 (4.0-11.0)
[2016-11-17 22:47] VITALS: BP 127/64; PULSE 89
[2016-11-17] MEDS: LACTATED RINGER'S 1000 ML INJ 1,000 ML IV SCH (22:49)
[2016-11-17] MEDS: MISOPROSTOL 25 MCG SUPP VAGINAL PRN (22:49)
[2016-11-17 22:52] VITALS: RESP 18
[2016-11-18] VITALS (25 sets, daily range): BP systolic 107–120; BP diastolic 53–91; PULSE 57–91; RESP 16–18; TEMP 97.5–98.5
[2016-11-18] MEDS: MISOPROSTOL 25 MCG SUPP VAGINAL PRN (03:43)
[2016-11-18] MEDS: LACTATED RINGER'S 1000 ML INJ 1,000 ML IV SCH ×7 (04:20→20:22)
[2016-11-18] MEDS: SODIUM CHLORIDE 0.9% FLUSH 10 ML FLUSH IV FLUSH SCH ×2 (07:04→21:00)
[2016-11-18] MEDS ORDERED: MISOPROSTOL 25 MCG SUPP VAGINAL ONE (08:15)
--- NOTE | 2016-11-18 09:02 | PD.LABORPN ---
Subjective Subjective No complaints. Cytotec 50 mg given. Objective Vital Signs Vital Signs Date Time Temp Pulse Resp B/P (MAP) Pulse Ox O2 Delivery O2 Flow Rate FiO2 11/18/16 06:55 98.2 11/18/16 03:01 65 115/53 (73) Objective Pelvic Exam: Cervix: midline Dilatation: 1 cm Effacement: 50% Station: -1 Presentation: cephalic Membranes: intact Uterine Contractions: none FHT's: Category: 1 Baseline: 135 Reactive: yes Variability: moderate Decels: none Weeks Gestation: 41 Gest Age Assessed Date: Nov 18, 2016 Gest Age Assessed Time: 09:02 Pt started active labor?: No Medical induction of labor?: Yes Medical induction start date: Nov 17, 2016 Medical induction start time: 20:17 Artificial rupture of membrane: No Assessment/Plan Problem List: (1) 41 weeks gestation of ICD Codes: Z3A.41 - 41 weeks gestation of Status: Acute (2) Oligohydramnios in shahid in third trimester ICD Codes: O41.03X0 - Oligohydramnios, third trimester, not applicable or unspecified Status: Acute Assessment and Plan 21 y/o @41/1 weeks here for medical induction sec to oligohydramnios. S/p cytotec 25 mg x2. No progression in dilation in the last 12 hours, patient still 1cm and 50% effaced. - Gave 50 mg cytotec - If no change in 2-4 hours, plan to use cook catheter - con't to monitor vitals and FHT DW Codie Peng MD R1 Nov 18, 2016 09:02
--- NOTE | 2016-11-18 13:19 | PD.LABORPN ---
Subjective Subjective Pt was seen around 10:30am and was comfortable with minimal cramping, bouncing on a ball. She was seen again now and reported increased cramping. It has been 4.5hrs since last dose of cytotec. Objective Vital Signs Vital Signs Date Time Temp Pulse Resp B/P (MAP) Pulse Ox O2 Delivery O2 Flow Rate FiO2 11/18/16 11:59 97.9 11/18/16 08:59 57 113/78 (90) 11/18/16 06:55 98.2 Objective Pelvic Exam: Cervix: Dilatation: 1.5 Effacement: 60 Station:-3 Presentation: cephalic Membranes: intact Uterine Contractions: none FHT's: Category: 1 Baseline: 140 Reactive: yes Variability: moderate Decels: absent Weeks Gestation: 41 Gest Age Assessed Date: Nov 18, 2016 Gest Age Assessed Time: 09:02 Pt started active labor?: No Medical induction of labor?: Yes Medical induction start date: Nov 17, 2016 Medical induction start time: 20:17 Artificial rupture of membrane: No Assessment/Plan Problem List: (1) 41 weeks gestation of ICD Codes: Z3A.41 - 41 weeks gestation of Status: Acute (2) Oligohydramnios in shahid in third trimester ICD Codes: O41.03X0 - Oligohydramnios, third trimester, not applicable or unspecified Status: Acute Assessment and Plan Cat 1 tracing s/p 25/25/50 mcg of cytotec with appropriate ripening will place cook catheter now with 60/60cc reassess PRN or in 12 hours Juan Carlos Mehta MD Nov 18, 2016 13:19
--- NOTE | 2016-11-18 19:58 | HHI.PR ---
[facility] [employer] Note Note FHT reviewed as cat 1 Juan Carlos Mehta MD Nov 18, 2016 19:58
[2016-11-18] MEDS ORDERED: OXYTOCIN 30 UNITS-500ML PREMIX 500 ML IV SCH (23:00)
[2016-11-19] VITALS (53 sets, daily range): BP systolic 103–139; BP diastolic 57–90; PULSE 76–119; RESP 14–20; TEMP 97.9–102.2; O2SAT 98–99
[2016-11-19] MEDS ORDERED: fentaNYL 2MCG-BUPIV 0.125% INJ 100 ML ONE (01:54)
[2016-11-19] MEDS ORDERED: ePHEDrine/NS 25 MG/5 ML SYR ONE (01:54)
[2016-11-19] MEDS ORDERED: NO SYSTEM NARCOTICS PRN (02:30)
[2016-11-19] MEDS ORDERED: DO NOT ADMINISTER ANTICOAGULANTS PRN (02:30)
[2016-11-19] MEDS ORDERED: ePHEDrine/NS 25 MG/5 ML SYR IV PUSH PRN (02:30)
[2016-11-19] MEDS ORDERED: fentaNYL 2MCG-BUPIV 0.125% 100 ML EPIDURAL SCH (02:30)
[2016-11-19] MEDS: LACTATED RINGER'S 1000 ML INJ 1,000 ML IV SCH ×3 (02:32→10:46)
--- NOTE | 2016-11-19 08:29 | PD.LABORPN ---
Subjective Subjective Pt resting comfortably in bed. No concerns at this time. Trying to get some sleep. Objective Vital Signs Vital Signs Date Time Temp Pulse Resp B/P (MAP) Pulse Ox O2 Delivery O2 Flow Rate FiO2 11/19/16 08:15 89 123/62 (82) 11/19/16 08:11 20 11/19/16 08:09 87 123/63 (83) 11/19/16 08:00 103 132/90 (104) 11/19/16 07:45 96 136/85 (102) 11/19/16 07:31 99 120/84 (96) 11/19/16 07:15 85 131/87 (102) 11/19/16 07:15 20 11/19/16 07:00 83 133/81 (98) 11/19/16 06:30 79 128/85 (99) 11/19/16 06:00 81 115/72 (86) 11/19/16 05:42 98.5 14 11/19/16 05:30 92 117/73 (88) 11/19/16 05:00 78 103/57 (72) 11/19/16 04:15 77 118/73 (88) 11/19/16 04:00 95 127/77 (94) 11/19/16 04:00 97.9 14 11/19/16 03:45 85 133/74 (93) 11/19/16 03:30 80 133/80 (97) 11/19/16 03:15 130/77 (94) 11/19/16 03:15 83 11/19/16 03:10 81 11/19/16 03:05 79 11/19/16 03:00 79 11/19/16 02:45 76 122/80 (94) 11/19/16 02:45 76 11/19/16 02:40 80 11/19/16 02:35 83 11/19/16 02:30 84 11/19/16 02:26 84 119/81 (94) 11/19/16 02:25 84 99 11/19/16 02:20 99 11/19/16 02:20 88 121/77 (92) 11/19/16 02:15 96 118/76 (90) 11/19/16 02:15 99 11/19/16 02:10 98 10/12/17 02:10 95 11/19/16 02:10 131/78 (95) 11/19/16 02:08 90 118/74 (89) Objective Pelvic Exam: Dilatation: 7-8 Effacement: 80 Station: -1 Presentation: vertex Membranes: SROM at 0612 this morning Uterine Contractions: q2-3 minutes FHT's: Category: 1 Baseline: 150 Reactive: yes Variability: moderate Decels: none Weeks Gestation: 41 Gest Age Assessed Date: Nov 18, 2016 Gest Age Assessed Time: 09:02 Pt started active labor?: Yes Active labor start date: Nov 19, 2016 Active labor start time: 03:00 Medical induction of labor?: Yes Medical induction start date: Nov 17, 2016 Medical induction start time: 20:17 Artificial rupture of membrane: No Assessment/Plan Problem List: (1) 41 weeks gestation of ICD Codes: Z3A.41 - 41 weeks gestation of Status: Acute (2) Oligohydramnios in shahid in third trimester ICD Codes: O41.03X0 - Oligohydramnios, third trimester, not applicable or unspecified Status: Acute Assessment and Plan 21 y/o G1 at 41/2 weeks in active labor, induced due to low ELISHA Category 1 FHT GBS negative SROM this morning -Continue pitocin -Expectant management -Epidural in place -Plan for vaginal delivery Domingo Díaz MD, R2 Nov 19, 2016 08:29
[2016-11-19] MEDS: SODIUM CHLORIDE 0.9% FLUSH 10 ML FLUSH IV FLUSH SCH (09:00)
[2016-11-19] MEDS ORDERED: ACETAMINOPHEN 325 MG TAB PO PRN ×3 (09:30→11:30)
--- NOTE | 2016-11-19 09:50 | PD.LABORPN ---
Subjective Subjective Pt was seen this morning on rounds. She is s/p epidural at 2am but still feels tired. Objective Vital Signs Vital Signs Date Time Temp Pulse Resp B/P (MAP) Pulse Ox O2 Delivery O2 Flow Rate FiO2 11/19/16 09:30 87 133/69 (90) 11/19/16 09:19 88 133/77 (95) 11/19/16 09:16 102.2 11/19/16 09:00 93 138/84 (102) 11/19/16 08:45 97 131/80 (97) 11/19/16 08:36 100.6 11/19/16 08:15 89 123/62 (82) 11/19/16 08:11 20 11/19/16 08:09 87 123/63 (83) 11/19/16 08:00 103 132/90 (104) 11/19/16 07:45 96 136/85 (102) 11/19/16 07:31 99 120/84 (96) 11/19/16 07:15 85 131/87 (102) 11/19/16 07:15 20 11/19/16 07:00 83 133/81 (98) 11/19/16 06:30 79 128/85 (99) 11/19/16 06:00 81 115/72 (86) 11/19/16 05:42 98.5 14 11/19/16 05:30 92 117/73 (88) 11/19/16 05:00 78 103/57 (72) 11/19/16 04:15 77 118/73 (88) 11/19/16 04:00 95 127/77 (94) 11/19/16 04:00 97.9 14 11/19/16 03:45 85 133/74 (93) 11/19/16 03:30 80 133/80 (97) 11/19/16 03:15 130/77 (94) 11/19/16 03:15 83 11/19/16 03:10 81 11/19/16 03:05 79 11/19/16 03:00 79 11/19/16 02:45 76 122/80 (94) 11/19/16 02:45 76 11/19/16 02:40 80 11/19/16 02:35 83 11/19/16 02:30 84 11/19/16 02:26 84 119/81 (94) 11/19/16 02:25 84 99 11/19/16 02:20 99 11/19/16 02:20 88 121/77 (92) 11/19/16 02:15 96 118/76 (90) 11/19/16 02:15 99 11/19/16 02:10 98 11/19/16 02:10 95 11/19/16 02:10 131/78 (95) 11/19/16 02:08 90 118/74 (89) Objective Cat 1 tracing cvx 7-8/90/0 Weeks Gestation: 41 Gest Age Assessed Date: Nov 18, 2016 Gest Age Assessed Time: 09:02 Pt started active labor?: Yes Active labor start date: Nov 19, 2016 Active labor start time: 03:00 Medical induction of labor?: Yes Medical induction start date: Nov 17, 2016 Medical induction start time: 20:17 Artificial rupture of membrane: No Assessment/Plan Problem List: (1) 41 weeks gestation of ICD Codes: Z3A.41 - 41 weeks gestation of Status: Acute (2) Oligohydramnios in shahid in third trimester ICD Codes: O41.03X0 - Oligohydramnios, third trimester, not applicable or unspecified Status: Acute (3) Chorioamnionitis ICD Codes: O41.1290 - Chorioamnionitis, unspecified trimester, not applicable or unspecified Assessment and Plan 1. Postdates IOL -- pt s/p of cytotec -- cook cath 13:00 to 01:00am today -- cvx 5 --> 7 --> 7-8 -- SROM @ 06:15 -- continue pitocin (currently at 16) -- if unchanged at next check (10am), place IUPC 2. wellbeing -- cat 1 tracing 3. Chorioamnionitis -- 100.6 @ 8am --> 500cc IVF bolus given -- 102.2 @ 09:15 --> start amp/gent and tylenol -- monitor closely Juan Carlos Mehta MD Nov 19, 2016 09:50
[2016-11-19] MEDS: AMPICILLIN INJ 2,000 MG in SODIUM CHLORIDE 0.9% INJ 100 ML IV SCH ×3 (10:09→22:35)
[2016-11-19] MEDS ORDERED: LIDOCAINE 2%/EPINEPHrine PF 1:200,000 20ML SDV ONE (10:26)
[2016-11-19] MEDS ORDERED: BUPIVACAINE HCL PF 0.25% 10 ML VIAL ONE (10:26)
[2016-11-19] MEDS ORDERED: ACETAMINOPHEN 1000 MG/100 ML 100 ML IV ONE ×2 (10:26→10:30)
[2016-11-19] MEDS: GENTAMICIN INJ 130 MG in SODIUM CHLORIDE 0.9% INJ 100 ML IV SCH ×2 (10:46→17:46)
--- NOTE | 2016-11-19 11:22 | HHI.PR ---
Subjective Remarks [facility] [place] Attending Delivery Note. Assumed care for patient at sign out from previous attending. Patient was noted to have chorioamnionitis with a recent fever of 102.2. Upon my arrival to the room she had received 500 cc IV fluid and 2 g of Ancef. I ordered an additional 500 cc of IV fluid and 1000 mg of Tylenol IV and the gentamycin was hung after completion of ampicillin. heart tones were noted to be tachycardic however had moderate long-term variability and good accelerations without evidence of heart rate decelerations, a likely response to the maternal fever. The patient's vaginal exam was noted to be an anterior rim/ complete/0. Shortly thereafter the patient was reexamined with SVE complete/ complete/+2. The patient made excellent spontaneous maternal expulsive efforts with practice pushing attempts during one contraction. The delivery team was assembled and the patient proceeded to deliver the head spontaneously and atraumatically during maternal expulsive efforts with one contraction. A loose nuchal cord was reduced over the head and anterior shoulder and remainder of the delivered atraumatically. The was vigorously after stimulation on the maternal abdomen and the team allowed to stay on the maternal abdomen for several minutes but was eventually taken to the warmer due to tachypnea where the received some additional oxygen support due to the tachypnea. The placenta delivered spontaneously and was noted to be intact. Cultures of the placenta were obtained and the placenta was sent to pathology. Apgars 7/9. Objective Vital Signs Date Time Temp Pulse Resp B/P (MAP) Pulse Ox O2 Delivery O2 Flow Rate FiO2 11/19/16 10:00 100 132/86 (101) 11/19/16 09:45 99 139/85 (103) 11/19/16 09:30 20 11/19/16 09:30 87 133/69 (90) 11/19/16 09:19 88 133/77 (95) 11/19/16 09:16 102.2 11/19/16 09:00 93 138/84 (102) 11/19/16 08:45 97 131/80 (97) 11/19/16 08:36 100.6 11/19/16 08:15 89 123/62 (82) 11/19/16 08:11 20 11/19/16 08:09 87 123/63 (83) 11/19/16 08:00 103 132/90 (104) 11/19/16 07:45 96 136/85 (102) 11/19/16 07:31 99 120/84 (96) 11/19/16 07:15 85 131/87 (102) 11/19/16 07:15 20 11/19/16 07:00 83 133/81 (98) 11/19/16 06:30 79 128/85 (99) 11/19/16 06:00 81 115/72 (86) 11/19/16 05:42 98.5 14 11/19/16 05:30 92 117/73 (88) 11/19/16 05:00 78 103/57 (72) 11/19/16 04:15 77 118/73 (88) 11/19/16 04:00 95 127/77 (94) 11/19/16 04:00 97.9 14 11/19/16 03:45 85 133/74 (93) 11/19/16 03:30 80 133/80 (97) 11/19/16 03:15 130/77 (94) 11/19/16 03:15 83 11/19/16 03:10 81 11/19/16 03:05 79 11/19/16 03:00 79 11/19/16 02:45 76 122/80 (94) 11/19/16 02:45 76 11/19/16 02:40 80 11/19/16 02:35 83 11/19/16 02:30 84 11/19/16 02:26 84 119/81 (94) 11/19/16 02:25 84 99 11/19/16 02:20 99 11/19/16 02:20 88 121/77 (92) 11/19/16 02:15 96 118/76 (90) 11/19/16 02:15 99 11/19/16 02:10 98 11/19/16 02:10 95 11/19/16 02:10 131/78 (95) 11/19/16 02:08 90 118/74 (89) 11/19/16 00:00 15 11/19/16 00:00 98.0 11/18/16 22:00 75 16 107/65 (79) 11/18/16 20:00 97.5 11/18/16 20:00 84 112/62 (79) 11/18/16 20:00 16 11/18/16 18:18 98.0 91 120/67 (84) 11/18/16 18:18 16 11/18/16 16:35 79 120/72 (88) 11/18/16 16:35 87 11/18/16 16:30 79 11/18/16 16:20 78 11/18/16 16:15 71 11/18/16 16:05 63 11/18/16 16:00 64 11/18/16 15:25 63 11/18/16 15:20 86 11/18/16 15:15 67 11/18/16 15:10 86 11/18/16 15:05 78 11/18/16 15:00 69 11/18/16 14:55 74 11/18/16 14:50 66 11/18/16 14:45 75 11/18/16 14:40 65 11/18/16 14:36 98.5 18 11/18/16 14:35 68 111/91 (98) 11/18/16 11:59 97.9 Result Diagram: 11/17/162044 Ester Awan MD Nov 19, 2016 11:22
[2016-11-19] MEDS ORDERED: ALUMINUM/MAGNESIUM/SIMETH 30 ML CUP PO PRN (11:30)
[2016-11-19] MEDS ORDERED: SODIUM CHLORIDE 0.9% FLUSH 10 ML FLUSH IV FLUSH PRN (11:30)
[2016-11-19] MEDS ORDERED: DOCUSATE SODIUM 50 MG/SENNA 8.6 MG TAB PO PRN (11:30)
[2016-11-19] MEDS ORDERED: ONDANSETRON ODT 4 MG TAB PO PRN (11:30)
[2016-11-19] MEDS ORDERED: oxyCODONE/ACETAMINOPHEN 5 MG/325 MG TAB PO PRN ×2 (11:30)
[2016-11-19] MEDS ORDERED: WITCH HAZEL 50%/GLYCERIN 12.5% 40 PAD JAR TOPICAL PRN (11:30)
[2016-11-19] MEDS ORDERED: BENZOCAINE 20% TOPICAL SPRAY 60 ML CAN TOPICAL PRN (11:30)
--- NOTE | 2016-11-19 12:09 | PD.OB.DELI ---
Weeks gestation: 41 Gest age assessed date: Nov 18, 2016 Gest age assessed time: 09:02 Pt started active labor?: Yes Active labor start date: Nov 19, 2016 Active labor start time: 03:00 Medical induction of labor?: Yes Medical induction start date: Nov 17, 2016 Medical induction start time: 20:17 Artificial rupture of membrane: No Anesthesia: Epidural Episiotomy: None Vaginal Delivery: Normal, Spontaneous Presentation: Occiput anterior, Vertex Nuchal Cord: x1 Delayed cord clamping (45 sec): Yes Infant: Female Delivery date: Nov 19, 2016 Delivery time: 11:01 One Minute : 7 Five Minute : 9 Weight: 3535 Placenta: Spontaneous delivery, Intact Laceration: Perineal laceration, 1 deg Repair: Chromic running Estimated blood loss: 250 cc Codie Millan MD R1 Nov 19, 2016 12:09
[2016-11-19] MEDS ORDERED: OXYTOCIN 30 UNITS-500ML PREMIX 500 ML IV SCH (12:30)
--- NOTE | 2016-11-19 14:11 | HHI.PR ---
Subjective Remarks [facility] Attending Of note the was transferred to the NICU after approximately 30 minutes of life for further evaluation and management. Upon discussion with the , it appears the is doing well but is receiving antibiotics for maternal chorioamnionitis although the parents apparently had initially refused this treatment. They subsequently changed her mind and the is receiving antibiotics. The parents of refused vitamin K injection. The mother is doing well with minimal bleeding and we will continue her antibiotics. Objective - Vital Signs Date Time Temp Pulse Resp B/P (MAP) Pulse Ox O2 Delivery O2 Flow Rate FiO2 11/19/16 13:00 77 128/79 (95) 11/19/16 12:35 20 11/19/16 11:59 98.8 11/19/16 11:00 99 Result Diagram: 11/17/16 2045 Ester Awan MD Nov 19, 2016 14:11
[2016-11-19] MEDS ORDERED: MEASLES, MUMPS, RUBELLA VACCINE 0.5 ML VIAL SQ ONE (16:00)
[2016-11-19] MEDS ORDERED: DIPHTH/TETANUS/ACEL PERTUSSIS (BOOSTER) 0.5 ML VIAL/PFS IM ONE (16:00)
[2016-11-19] MEDS: IBUPROFEN 600 MG TAB PO PRN (17:49)
[2016-11-19] MEDS ORDERED: SODIUM CHLORIDE 0.9% FLUSH 10 ML FLUSH IV FLUSH SCH (21:00)
[2016-11-19] MEDS ORDERED: ZOLPIDEM TARTRATE 5 MG TAB PO PRN (21:00)
[2016-11-20] MEDS: IBUPROFEN 600 MG TAB PO PRN ×3 (00:17→23:07)
[2016-11-20] MEDS: GENTAMICIN INJ 130 MG in SODIUM CHLORIDE 0.9% INJ 100 ML IV SCH ×3 (01:59→18:51)
[2016-11-20] MEDS: AMPICILLIN INJ 2,000 MG in SODIUM CHLORIDE 0.9% INJ 100 ML IV SCH ×4 (04:05→23:07)
--- NOTE | 2016-11-20 09:55 | HHI.OB ---
Subjective Post Day: 1 Remarks day #1. AFVSS overnight. Pain well-controlled. Decreased lochia. Denies dysuria. No breast tenderness. She is feeding the baby via breast. Appetite good. No nausea or vomiting. Endorses flatus. No bowel movement. Ambulating well. Denies calf pain, shortness of breath, or cough. Otherwise, she is doing well this morning and has no other complaints. Objective Vitals/I&O Vital Signs Date Time Temp Pulse Resp B/P (MAP) Pulse Ox O2 Delivery O2 Flow Rate FiO2 11/19/16 20:00 98.3 11/19/16 20:00 82 18 113/69 (84) 11/19/16 13:00 77 128/79 (95) 11/19/16 12:45 83 127/79 (95) 11/19/16 12:35 20 11/19/16 12:30 84 123/79 (94) 11/19/16 12:15 91 122/79 (93) 11/19/16 12:00 77 118/71 (87) 11/19/16 11:59 98.8 11/19/16 11:50 20 11/19/16 11:45 80 123/80 (94) 11/19/16 11:45 20 11/19/16 11:30 90 125/76 (92) 11/19/16 11:19 98 134/78 (96) 11/19/16 11:00 119 99 11/19/16 10:00 100 132/86 (101) Objective Remarks GENERAL: Well-nourished, well-developed patient. CARDIOVASCULAR: Regular rate and rhythm without murmurs, gallops, or rubs. RESPIRATORY: Breath sounds equal bilaterally. No accessory muscle use. ABDOMEN/GI: Abdomen soft, non-tender. Fundus: Firm, non-tender at umbilicus. GENITOURINARY: Light to moderate bleeding. EXTREMITIES: No cyanosis or edema, non-tender, without signs of DVT. Medications and IVs Current Medications Medications (Trade) Dose Ordered Sig/Mattie Route Start Time Stop Time Status Last Admin Ampicillin Sodium 2000 mg/Sodium Chloride 100 ml @ 400 mls/hr Q6H IV 11/19/16 10:00 11/20/16 09:01 Gentamicin Sulfate 130 mg/ Sodium Chloride 103.25 ml @ 100 mls/ hr Q8H IV 10/12/17 10:00 11/20/16 09:38 (NS Flush) 2 ml BID IV FLUSH 11/19/16 21:00 11/20/16 08:48 (NS Flush) 2 ml UNSCH PRN IV FLUSH 11/19/16 11:30 (Tylenol) 650 mg Q4H PRN PO 11/19/16 11:30 (Motrin) 600 mg Q6H PRN PO 11/19/16 11:30 11/20/16 00:17 (Percocet 5-325 Mg) 1 tab Q4H PRN PO 11/19/16 11:30 (Percocet 5-325 Mg) 2 tab Q4H PRN PO 11/19/16 11:30 (Americaine 20% Top Spr) 1 spray Q4H PRN TOPICAL 11/19/16 11:30 (Tucks Pads) 1 applic QID PRN TOPICAL 11/19/16 11:30 (Ashanti-Colace) 2 tab Q12H PRN PO 11/19/16 11:30 (Ambien) 5 mg HS PRN PO 11/19/16 21:00 (Mag-Al Plus Susp Liq) 15 ml Q8H PRN PO 11/19/16 11:30 (Zofran Odt) 4 mg Q6H PRN PO 11/19/16 11:30 Assessment/Plan Problem List: (1) 41 weeks gestation of ICD Codes: Z3A.41 - 41 weeks gestation of Status: Acute (2) Oligohydramnios in shahid in third trimester ICD Codes: O41.03X0 - Oligohydramnios, third trimester, not applicable or unspecified Status: Acute (3) Chorioamnionitis ICD Codes: O41.1290 - Chorioamnionitis, unspecified trimester, not applicable or unspecified Assessment and Plan 21 y/o who is PPD# 1 s/p . -Continue routine care. -Percocet and Motrin PRN pain. -Encouraged OOB. Advised pelvic rest for 6 wks. -Will need a f/u appt. within 6 wks. -Re: ctrl, she is undecided -D/c in 1-2 more days. Chorioamtniotis -Continue Amp/Gent until 48 hours afebrile dw OB attending Domingo Díaz MD, R2 Nov 20, 2016 09:55
[2016-11-20 16:00] VITALS: BP 127/63; PULSE 74; RESP 16; TEMP 97.6
[2016-11-20 16:10] VITALS: BP 127/73; PULSE 74; RESP 16; TEMP 97.6
[2016-11-20 21:30] VITALS: PULSE 73; RESP 18
[2016-11-21 02:00] VITALS: BP 112/62; PULSE 78; RESP 18; TEMP 97.7
[2016-11-21] MEDS: GENTAMICIN INJ 130 MG in SODIUM CHLORIDE 0.9% INJ 100 ML IV SCH (02:32)
[2016-11-21] MEDS: AMPICILLIN INJ 2,000 MG in SODIUM CHLORIDE 0.9% INJ 100 ML IV SCH (05:01)
--- NOTE | 2016-11-21 08:11 | HHI.OB ---
Subjective Post Day: 2 Remarks Pt seen and examined this morning. day # 2 AFVSS overnight. Decreased lochia. Denies dysuria. No breast tenderness. She is feeding the baby via breast and bottle. Appetite good. No nausea or vomiting. Patient has not yet had a bowel movement,but does endorse bowel gas. Ambulating well. Denies calf pain or shortness of breath. Otherwise, she is doing well this morning and has no other concerns. Objective Vitals/I&O Vital Signs Date Time Temp Pulse Resp B/P (MAP) Pulse Ox O2 Delivery O2 Flow Rate FiO2 11/21/16 02:00 97.7 78 18 112/62 (79) 11/20/16 21:30 73 18 11/20/16 16:10 74 127/73 (91) 11/20/16 16:10 97.6 16 11/20/16 16:00 97.6 16 11/20/16 16:00 74 127/63 (84) Objective Remarks GENERAL: Well-nourished, well-developed patient. CARDIOVASCULAR: Regular rate and rhythm without murmurs, gallops, or rubs. RESPIRATORY: Breath sounds equal bilaterally. No accessory muscle use. ABDOMEN/GI: Abdomen soft, non-tender. Fundus: Firm, non-tender at umbilicus. GENITOURINARY: Light to moderate bleeding. EXTREMITIES: No cyanosis or edema, non-tender, without signs of DVT. Medications and IVs Current Medications Medications (Trade) Dose Ordered Sig/Mattie Route Start Time Stop Time Status Last Admin Ampicillin Sodium 2000 mg/Sodium Chloride 100 ml @ 400 mls/hr Q6H IV 11/19/16 10:00 11/21/16 05:01 Gentamicin Sulfate 130 mg/ Sodium Chloride 103.25 ml @ 100 mls/ hr Q8H IV 11/19/16 10:00 11/21/16 02:32 (NS Flush) 2 ml BID IV FLUSH 11/19/16 21:00 11/20/16 08:48 (NS Flush) 2 ml UNSCH PRN IV FLUSH 11/19/16 11:30 (Tylenol) 650 mg Q4H PRN PO 11/19/16 11:30 (Motrin) 600 mg Q6H PRN PO 11/19/16 11:30 11/20/16 23:07 (Percocet 5-325 Mg) 1 tab Q4H PRN PO 11/19/16 11:30 (Percocet 5-325 Mg) 2 tab Q4H PRN PO 11/19/16 11:30 (Americaine 20% Top Spr) 1 spray Q4H PRN TOPICAL 11/19/16 11:30 (Tucks Pads) 1 applic QID PRN TOPICAL 11/19/16 11:30 (Ashanti-Colace) 2 tab Q12H PRN PO 11/19/16 11:30 11/20/16 23:31 (Ambien) 5 mg HS PRN PO 11/19/16 21:00 (Mag-Al Plus Susp Liq) 15 ml Q8H PRN PO 11/19/16 11:30 (Zofran Odt) 4 mg Q6H PRN PO 11/19/16 11:30 Assessment/Plan Problem List: (1) 41 weeks gestation of ICD Codes: Z3A.41 - 41 weeks gestation of Status: Acute (2) Oligohydramnios in shahid in third trimester ICD Codes: O41.03X0 - Oligohydramnios, third trimester, not applicable or unspecified Status: Acute (3) Chorioamnionitis ICD Codes: O41.1290 - Chorioamnionitis, unspecified trimester, not applicable or unspecified (4) (spontaneous vaginal delivery) ICD Codes: O80 - Encounter for full-term uncomplicated delivery Assessment and Plan 21 y/o who is PPD# 2 s/p . -Continue routine care. -Motrin PRN pain. -Encouraged OOB. Advised pelvic rest for 6 wks. -Will need a f/u appt. within 6 wks. -Re: ctrl, she is undecided, will discuss at f/u appointment. -D/c likely today with baby Chorioamtniotis -Continue Amp/Gent until 48 hours afebrile -Last maternal documented fever: 102.2 (11/19/16 at 0916) dw Dr. Hernandez Discharge Planning Likely today with baby Curt Nevarez MD R2 Nov 21, 2016 08:11
[2016-11-21 08:20] VITALS: PULSE 79
[2016-11-21] MEDS ORDERED: SENN1TAB PO (09:02)
[2016-11-21] MEDS ORDERED: IBUP-232 PO (09:02)
--- NOTE | 2016-11-21 09:02 | HHI.DCPOC ---
Discharge Care Plan Diagnosis: (1) (spontaneous vaginal delivery) (2) Chorioamnionitis (3) 41 weeks gestation of Report Symptoms to Your Doctor -Temperature above 100.5 degrees -Redness, of incision or excessive or foul smelling drainage -Unusual pain or calf pain -Increased vaginal bleeding -Painful or difficulty urinating -Feelings of extreme sadness or anxiety after 2 weeks Goals to Promote Your Health * To prevent worsening of your condition and complications * To maintain your health at the optimal level Directions to Meet Your Goals Take your medications as prescribed Follow your dietary instruction Follow activity as directed Ensure plenty of rest for recovery Drink fluids for hydration Keep your appointments as scheduled Take your immunizations and boosters as scheduled If your symptoms worsen call your PCP, if no PCP go to Urgent Care Center or Emergency Room Smoking is Dangerous to Your Health. Avoid second hand smoke Call the 24-hour crisis hotline for domestic abuse at Curt Nevarez MD R2 Nov 21, 2016 09:02
== END 2016-11-21 12:35 | disposition home or self-care (01) | DRG 775 ==
LOC: HOBED 19:25 → H2EB 20:27 → H1EA 11-19 14:15
PROVIDERS: ADMIT Obstetrics & Gynecology Obstetrics; ATTEND Obstetrics & Gynecology Obstetrics
PROC: 3E0P7VZ Introduction of Hormone into Female Reproductive, Via Natural or Artificial Opening (ICD-10-PCS; 2016-11-17)
PROC: 10E0XZZ Delivery of Products of Conception, External Approach (ICD-10-PCS; principal; 2016-11-19)
PROC: 0HQ9XZZ Repair Perineum Skin, External Approach (ICD-10-PCS; 2016-11-19)
DX: O41.03X0 Oligohydramnios, third trimester, not applicable or unspecified (principal); O41.1230 Chorioamnionitis, third trimester, not applicable or unspecified; O48.0 Post-term pregnancy; O76 Abnormality in fetal heart rate and rhythm complicating labor and delivery; O69.81X0 Labor and delivery complicated by cord around neck, without compression, not applicable or unspecified; O70.0 First degree perineal laceration during delivery; Z37.0 Single live birth; Z3A.41 41 weeks gestation of pregnancy
CPT/HCPCS: 59025; 81001; 85025; 86403; 86592; 86900; 86901; 87070; 87205; 88307; J0131; J0290; J1580; J2590; J7120